=== PATIENT | male | born 1950 | race Caucasian/White ===

== ENCOUNTER 2018-12-25 04:54 | Inpatient (IN) ==
--- NOTE | 2018-11-29 11:38 | PAT Medication Instructions ---
Medication Instructions Date of Service November 29, 2018 Home Medications omega 3-ktd-grc-fish oil [Fish Oil] 1 cap PO QAM STOP taking 2 weeks before surgery (or as soon as possible if surgery is within 2 weeks) omega 8-tns-zxt-fish oil [Fish Oil] 1 cap PO QAM Other Notes If you have any questions please call us at [phone] or [phone] or [phone] or [phone]
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
--- NOTE | 2018-12-03 10:54 | XRay Report ---
XR chest Pre-admission PA/Lat HISTORY: 67 years-old Male pat preoperative exam. No acute chest complaints COMPARISON: None available TECHNIQUE: PA and lateral views of the chest FINDINGS: Asymmetric right hilar prominence. The left hilum and cardiac silhouette appears normal. No pneumotho rax, pleural effusion, focal airspace consolidation or overt pulmonary edema. The lungs are mildly hy perinflated. Cholecystectomy. The bones appear grossly intact. IMPRESSION: Asymmetric right hilar prominence. This finding may be secondary to pulmonary vasculature or adenopathy. Correlate with prior imaging. The above report was generated using voice recognition software. It may contain grammatical, syntax o r spelling errors. Electronically signed by: Sriram Vásquez M.D. 12/03/2018 10:53 AM
[2018-12-03 11:57] LABS: Basophils # (auto) 0.08 K/uL (0-0.2); Basophils % (auto) 1.6 %; Eosinophils # (auto) 0.14 K/uL (0-0.5); Eosinophils % (auto) 2.8 %; Hematocrit (blood only) 43.8 % (42-52); Hemoglobin 14.6 g/dL (14.0-18.0); Immature Granulocytes # (auto) 0.01 K/uL (0.00-0.02); Immature Granulocytes % (auto) 0.2 %; Lymphocytes # (auto) 1.82 K/uL (1.2-3.4); Lymphocytes % (auto) 35.9 %; Mean Corpuscular Hemoglobin 31.1 pg (25-34); Mean Corpuscular Hgb Conc 33.3 g/dL (32-36); Mean Corpuscular Volume 93.4 fL (80-100); Mean Platelet Volume 10.4 fL (7.4-10.4); Monocytes # (auto) 0.36 K/uL (0.11-0.59); Monocytes % (auto) 7.1 %; Neutrophils # (auto) 2.66 K/uL (1.4-6.5); Neutrophils % (auto) 52.4 %; Platelet Count 192 K/uL (130-400); RDW Coefficient of Variation 12.4 % (11.5-14.5); RDW Standard Deviation 42.1 fL (36.4-46.3); Red Blood Count 4.69 M/uL (4.7-6.1); White Blood Count 5.07 K/uL (4.8-10.8)
[2018-12-03 12:05] LABS: Partial Thromboplastin Time 27.8 Seconds (21.0-31.0); Prothrombin Time 10.4 Seconds (9.0-12.0)
[2018-12-03 12:36] LABS: BUN Creatinine Ratio 12.6 (10-20); Calcium 8.7 mg/dl (8.5-10.1); Creatinine Clr Calc Pharmacy 67.3 ml/min; Est GFR (African American) 80.1; Est GFR (Non-African American) 69.1
--- NOTE | 2018-12-22 10:41 | History and Physical Report ---
DATE OF ADMISSION: 12/25/2018 CHIEF COMPLAINT: Right hip pain. HISTORY OF PRESENT ILLNESS: The patient is a 68-year-old gentleman who presents for surgical treatment of right hip. He has got a 5-year history of gradually increasing pain and discomfort in his right hip, groin, and thigh area. Some buttock pain as well. Radiates down to his knee. Denies any numbness. He has seen my partner Dr. Pina who has been managing, but become less successful over time. He has a limited walking tolerance. He has difficulty putting his shoes and socks on. Minimal response to anti-inflammatories. He would like to proceed with surgical treatment. PAST MEDICAL HISTORY: 1. Low back pain. 2. Skin cancer. PAST SURGICAL HISTORY: Include: 1. [place] [address] Castellanos. 2. Skin surgery. ALLERGIES: No known drug allergies. CURRENT MEDICATIONS: None. SOCIAL HISTORY: Significant for a 67-year-old gentleman. He does not smoke. One drink per week. FAMILY HISTORY: Noncontributory. REVIEW OF HISTORY: Negative for diabetes, neurologic problems, vascular problems or bleeding disorders. Denies any chest pain or shortness of breath. No history of DVT or PE. No known bleeding problems. PHYSICAL EXAMINATION: GENERAL: Shows a pleasant, middle-aged male. He looks to be in pretty good health. HEENT: Benign. NECK: Supple, no lymphadenopathy. LUNGS: Clear to auscultation. HEART: Regular rate and rhythm. ABDOMEN: Soft, nontender, nondistended. EXTREMITIES: Grossly neurovascularly intact except as follows. Examination of the right hip reveals patient walks with a slight bit of a limp. Leg lengths appear pretty equal clinically. Maybe just a little bit short on the right side compared to left. He has a very stiff hip. Internal rotation to neutral at best. This recreates his leg and thigh pain. He has got no knee effusion. Negative straight leg raise. He is neurologically intact. X-RAYS: X-rays of the right hip were reviewed. Shows advanced right hip DJD. He has got complete loss of the superior joint space. He has subchondral sclerosis. He has got some osteophytes around the femoral head and acetabulum. ASSESSMENT: A 68-year-old gentleman with advanced right hip degenerative joint disease. He has failed conservative treatment. The hip arthritis may be the source of a lot of his knee pain as well. PLAN: We talked about treatment options. He would like to have his right hip replaced. We are going to take him to the operating room and do a right total hip replacement. The risks and benefits of this procedure were explained to the patient including but not limited to DVT, PE, , infection, neurological injury, vascular injury, bleeding problem, pain, limited range of motion, stiffness, failure to relieve symptoms, incomplete relief of symptoms, need for further surgery in future, fracture, leg length inequality, nerve palsy, dislocation, need for revision surgery, etc. The patient understands and desires to proceed. Informed consent was obtained. As far as discharge plans, he is planning to be discharged to home using [facility].
[2018-12-25] MEDS ORDERED: ACETAMINOPHEN 500 MG TAB PO SCH (06:00)
[2018-12-25] MEDS ORDERED: TRANEXAMIC ACID 1,000 MG **IV Pre-op IV SCH (06:00)
[2018-12-25] MEDS ORDERED: LR 500ML BOLUS, THEN 15ML/HR IV SCH (06:00)
[2018-12-25] MEDS ORDERED: LR 60ML/HR IV SCH (06:00)
[2018-12-25] MEDS ORDERED: GABAPENTIN 300 MG CAP PO SCH (06:00)
[2018-12-25] MEDS ORDERED: SCOPOLAMINE 1.5 MG TDSY TD SCH (06:00)
[2018-12-25] MEDS ORDERED: CEFAZOLIN 2000MG 2,000 MG/15 ML SYR IV SCH (06:00)
[2018-12-25] MEDS ORDERED: METOCLOPRAMIDE HCL 10 MG TABLET PO SCH (06:00)
[2018-12-25] MEDS ORDERED: FAMOTIDINE 20 MG TAB PO SCH (06:00)
[2018-12-25] MEDS ORDERED: BUPIVACAINE 0.5 % 5 MG/1 ML PF 10ML VIAL ONE (06:22)
[2018-12-25] MEDS ORDERED: BACITRACIN INJ 50,000 UNIT VIAL ONE (06:35)
[2018-12-25] MEDS ORDERED: BUPIVACAINE 0.5 % 5 MG/1 ML MPF 30ML VIAL ONE (06:35)
[2018-12-25] MEDS ORDERED: EPINEPHrine INJ 1 MG/ML AMP ONE (06:36)
[2018-12-25] MEDS ORDERED: MoRPHine SULFATE PF 1 MG/ML 10 ML AMP/VIAL ONE (06:40)
[2018-12-25] MEDS ORDERED: fentaNYL citrate 100 MCG/2 ML VIAL ONE (06:40)
[2018-12-25] MEDS ORDERED: MIDAZOLAM HCL 1 MG/ML 2ML VIAL ONE ×2 (06:40→06:59)
--- NOTE | 2018-12-25 06:53 | History & Physical Bridge Note ---
Date of Service December 25, 2018 History & Physical Bridge Note I have examined the patient, reviewed the History & Physical and in the interval since the performance of the History & Physical I have noted the following changes of clinical significance: no changes noted
--- NOTE | 2018-12-25 08:24 | Post Operative Brief Note ---
PG Immediate Post Op with CF Date of Surgery December 25, 2018 Pre & Post Diagnosis Operation Date: 12/25/18 07:00 Pre-Op Diagnosis: Right Hip Advanced Degenerative Joint Disease Post-Op Diagnosis: Right Hip Advanced Degenerative Joint Disease I identified the patient and participated in the time-out.: Yes Procedure Operation Date: 12/25/18 07:00 Actual Procedures p Right Total Hip Arthroplasty--Uncemented(Right) - Saul Cedeno MD Surgeon Saul Cedeno MD Bottom Ironer Sha, PAC Estimated Blood Loss 200 Findings Consistent with Post-Op Diagnosis Fluids 1300 cc Specimens Specimen Description: A. Right Femoral Head Drains Trammell Catheter (A 16 Arabic trammell catheter was inserted by EVANGELINA Andrade, without difficulty, clear yellow urine obtained, output to be monitored by Anesthesia.) Anesthesia Type Spinal MAC Complications none Disposition Disposition: Recovery Room
--- NOTE | 2018-12-25 08:36 | Operative Report ---
Post Operative Report Pre & Post Diagnosis Operation Date: 12/25/18 07:00 Pre-Op Diagnosis: Right Hip Advanced Degenerative Joint Disease Post-Op Diagnosis: Right Hip Advanced Degenerative Joint Disease I identified the patient and participated in the time-out.: Yes Procedure Operation Date: 12/25/18 07:00 Actual Procedures p Right Total Hip Arthroplasty--Uncemented(Right) - Saul Cedeno MD Surgeon Saul Cedeno MD Tank Builder Supervisor Sha, PAC Estimated Blood Loss 200 Findings Consistent with Post-Op Diagnosis Operative findings revealed advanced right hip DJD. He had a large anterior osteophyte. He had grade 4 [id number] disease of the femoral head and acetabulum. Very stiff hip with limited internal rotation. Fluids 1300 cc Specimens Right femoral head sent for pathology. Anesthesia Type Spinal MAC Complications none Disposition Disposition: Recovery Room Indications Patient is a 68-year-old male is had a several history of increased right hip pain discomfort. He failed extensive conservative care. He had a very stiff hip with limited motion. X-rays reveal advanced right hip DJD. He failed conservative care and like to proceed with total hip arthroplasty. Description of Procedure Operative implants consisted of: 1. Biomet size 58 mm G7 acetabular shell. 2. Biomet apex hole eliminator. 3. Biomet 58 mm x 36 mm highly cross-link polyethylene liner with a wright placed inferior and posterior. 4. 6.5 cancellus acetabular screws 1 a 35 mm length and 125 mm in length. 5. PePuy Coarail size 13 KLA femoral stem. 6. +8.5/36 mm ceramic articular ball. Patient is taken to the operating room identified and placed on the operating table supine position. Contact there is probably padded. IV antibiotic for by by the anesthesia team. Heath catheter was placed in sterile fashion. Patient was then placed in the left lateral decubitus position. Axillary roll was placed per the Stulberg hip positioner was used for positioning. The right hip and leg were then prepped and draped in usual sterile fashion. A posterior lateral approach of the right hip was then performed to a curvilinear incision centered over the greater trochanter but Sharp passes cut through subtenons tissue down to level the IT band gluteal fascia we document gluteal fascia incised longitudinally in line with skin incision. The underlying greater trochanteric bursa was then excised. The piriformis and external rotators were tagged and taken off the posterior aspect of the hip joint capsule. Great care was taken throughout the procedure to protect the sciatic nerve at all times. Posterior capsulotomy was then performed leaving a large flap for later repair. Hip was internally rotated and dislocated. Femoral neck osteotomy cut was weight made with Final Cut 8 mm above the lesser trochanter. Femoral head was removed and sent for pathology. The femur was retracted anteriorly. Attention drawn the acetabulum. The acetabular labrum was excised. The pulmonary fat was excised. Sequential reaming the acetabulum was then performed given the size 49 progressing up to 57. A 58 mm Biomet G7 acetabular shell was then placed in about 40 degrees lateral opening and 20 degrees of anteversion but was fixed with two 6.5 cancellus acetabular screws. Somewhat large anterior osteophytes were removed. A trial liner was placed. Attention drawn the femur. The proximal femur was then with a TeliApp cutter followed by canal finder. Then broach being the size 8 and progressing up to 13. Got excellent fitted to 13. Cancellus bone was very strong so we elected to stop there. Calcar reamer was used to smooth off the calcar. I trialed the hip. I considered several options but I elected to place a highly cross-link polyethylene liner with a wall placed inferior and posterior to +5 articular ball. Seem to re-create the most stability to the hip and the appropriate soft tissue tension and leg lengths. I like to place these implants. New profile trial implants were removed. An apex hole eliminator was placed but highly cross-link polyethylene liner with a wright placed inferior and posterior were then placed. A Lutz Corail size 13 KLA femoral stem was then impacted in position. A +5/36 mm ceramic articular ball was placed. Hip was located once again found to be stable. Attention turned to closing. Breath wounds irrigated cups amounts of pulsatile lavage solution. I did inject locally with 60 cc of 5% Marcaine with epinephrine. The posterior capsule and external rotators were then repaired through drill holes in the posterior trochanter with #2 Tycron suture. The IT band gluteal fascia then closed in 1 PDS suture running fashion this obtains tissues then closed 2 layers with a deep layer #1 Vicryl suture this obtains tissues with 2-0 Dexon suture in a buried interrupted fashion. The skin was then closed with skin rashmi. Leg was then cleaned dried and sterile dressing composed of Xeroform, 4 x 4's, ABD pad, foam tape was applied. Patient then transferred to the recovery room in stable condition. Patient tolerated the procedure well no comp case but only sponge counts are correct at the end the operation. I attest to the content of the Intraoperative Record and any orders documented therein. Any exceptions are noted below.
[2018-12-25] MEDS ORDERED: ePHEDrine sulfate 50 MG/ML AMP IV PRN ×2 (08:40→10:36)
[2018-12-25] MEDS ORDERED: ATROPINE SULFATE 0.1 MG/ML 10ML SYR IV PRN (08:40)
--- NOTE | 2018-12-25 09:06 | XRay Report ---
XR hip 1V RT w pelvis CLINICAL HISTORY: IN PACU - A/P PELVIS and LATERAL HIP pain COMPARISON: None. DISCUSSION: Anatomic alignment posttotal right hip arthroplasty. Could contact between prosthetic and underlying bone. Expected postoperative soft tissue change IMPRESSION: Anatomic alignment posttotal right hip arthroplasty. The above report was generated using voice recognition software. It may contain grammatical, syntax or spelling errors. Electronically signed by: Ferdinand Stone M.D. 12/25/2018 9:05 AM
--- NOTE | 2018-12-25 09:20 | Anesthesiology Progress Note ---
Date of Service December 25, 2018 Anesthesia Post Procedure Vital Signs Vital Signs: Temp Pulse Pulse Resp BP Pulse Ox 12/25/18 09:15 36.7 C 51 L 16 121/56 L 100 12/25/18 09:05 63 17 119/57 L 99 12/25/18 08:55 61 23 142/64 H 100 12/25/18 08:45 65 16 153/63 H 87 L 12/25/18 08:35 71 16 153/63 H 100 12/25/18 08:25 36.4 C L 82 16 141/47 H 99 12/25/18 05:23 36.5 C 75 20 148/73 H 99 Pain Intensity Right Hip: Pain Intensity: 0 Transfer of Care Handoff Completed per policy Notes Mental Status: alert / awake / arousable Patient Amnestic to Procedure: Yes Nausea / Vomiting: adequately controlled Pain: adequately controlled Airway Patency, RR, SpO2: stable & adequate BP & HR: stable & adequate Hydration State: stable & adequate Anesthetic Complications: no major complications apparent
[2018-12-25] MEDS ORDERED: MAGNESIUM HYDROXIDE SUSP 30 ML UDC PO PRN (09:56)
[2018-12-25] MEDS ORDERED: BISACODYL 10 MG SUPP PR PRN (09:56)
[2018-12-25] MEDS ORDERED: ALUMINUM/MAGNESIUM SUSP 30 ML UDC PO PRN (09:56)
[2018-12-25] MEDS ORDERED: NALOXONE HCL 0.4 MG/1 ML VIAL/CARP IV PRN ×2 (09:56→10:36)
[2018-12-25] MEDS ORDERED: TAMSULOSIN HCL 0.4 MG CAP PO PRN (10:00)
[2018-12-25] MEDS ORDERED: NALOXONE HCL 1 MG in SODIUM CHLORIDE 0.9% 1000ML 1,000 ML IV PRN (10:36)
[2018-12-25] MEDS ORDERED: DiphenhydrAMINE HCL 50 MG/ML VIAL IV PRN (10:36)
[2018-12-25] MEDS ORDERED: NALOXONE HCL 0.08 MG in SYRINGE 1.8 ML IV PRN (10:36)
[2018-12-25] MEDS ORDERED: MoRPHine SULFATE PF 1 MG/ML 10 ML AMP/VIAL INT SPINAL ONE (10:36)
[2018-12-25] MEDS ORDERED: ONDANSETRON INJ 2 MG/ML 2 ML VIAL IV PRN (10:36)
[2018-12-25] MEDS ORDERED: NALBUPHINE HCL INJ 10 MG/ML AMP IV PRN (10:36)
[2018-12-25] MEDS ORDERED: LACTATED RINGER'S 500 ML IV PRN (10:36)
[2018-12-25] MEDS ORDERED: NO NARCOTICS OR SEDATIVES SCH (10:45)
[2018-12-25] MEDS ORDERED: SODIUM CHLORIDE 0.9% 1000ML 1,000 ML IV SCH (10:45)
[2018-12-25] MEDS ORDERED: DC INTRASPINAL MORPHINE SCH (10:45)
[2018-12-25] MEDS: SODIUM CHLORIDE 0.9% 1000ML 1,000 ML IV SCH ×2 (11:20→20:21)
[2018-12-25] MEDS: DOCUSATE SODIUM 100 MG CAP PO SCH ×2 (11:20→20:18)
[2018-12-25] MEDS: MULTIVITAMIN TAB PO SCH (11:21)
[2018-12-25] MEDS: ASPIRIN 81 MG ECTAB PO SCH ×2 (11:21→20:19)
[2018-12-25] MEDS: OMEGA-3 (PURIFIED FISH OIL) 1 GM CAP PO SCH (11:21)
[2018-12-25] MEDS: KETOROLAC TROMETHAMINE 15 MG/ML VIAL IV SCH ×3 (11:25→23:32)
[2018-12-25] MEDS: ACETAMINOPHEN 500 MG TAB PO SCH ×2 (13:31→22:18)
[2018-12-25] MEDS: CEFAZOLIN 2000MG 2,000 MG/15 ML SYR IV SCH ×2 (14:16→22:20)
[2018-12-25] MEDS ORDERED: TRANEXAMIC ACID 1,000 MG in 0.9 % SODIUM CHLORIDE 100 ML IV SCH (14:30)
[2018-12-25] MEDS: CHECK SCOPOLAMINE PATCH PLACEMENT SCH ×2 (16:07→23:35)
[2018-12-25] MEDS: FERROUS GLUCONATE 324 MG TAB PO SCH (17:33)
[2018-12-25] MEDS: ASCORBIC ACID 500 MG TAB PO SCH (17:33)
[2018-12-25] MEDS ORDERED: SENNA 8.6 MG TAB PO SCH (21:00)
[2018-12-26] MEDS ORDERED: METOCLOPRAMIDE HCL INJ 5 MG/ML 2 ML VIAL IV PRN (04:37)
[2018-12-26] MEDS ORDERED: HYDROmorphone INJ 0.5 MG/0.5 ML SYR IV PRN (04:37)
[2018-12-26] MEDS ORDERED: TRAMADOL HCL 50 MG TABLET PO PRN (04:37)
[2018-12-26] MEDS ORDERED: ONDANSETRON INJ 2 MG/ML 2 ML VIAL IV PRN (04:37)
[2018-12-26] MEDS: ACETAMINOPHEN 500 MG TAB PO SCH ×2 (05:19→14:07)
[2018-12-26] MEDS: KETOROLAC TROMETHAMINE 15 MG/ML VIAL IV SCH ×3 (05:19→17:04)
[2018-12-26] MEDS: SODIUM CHLORIDE 0.9% 1000ML 1,000 ML IV SCH (06:00)
[2018-12-26 06:06] LABS: Basophils # (auto) 0.04 K/uL (0-0.2); Basophils % (auto) 0.4 %; Eosinophils # (auto) 0.08 K/uL (0-0.5); Eosinophils % (auto) 0.9 %; Hematocrit (blood only) 33.8 % (42-52); Hemoglobin 11.6 g/dL (14.0-18.0); Immature Granulocytes # (auto) 0.02 K/uL (0.00-0.02); Immature Granulocytes % (auto) 0.2 %; Lymphocytes # (auto) 1.41 K/uL (1.2-3.4); Lymphocytes % (auto) 15.7 %; Mean Corpuscular Hemoglobin 31.6 pg (25-34); Mean Corpuscular Hgb Conc 34.3 g/dL (32-36); Mean Corpuscular Volume 92.1 fL (80-100); Mean Platelet Volume 10.1 fL (7.4-10.4); Monocytes # (auto) 1.05 K/uL (0.11-0.59); Monocytes % (auto) 11.7 %; Neutrophils # (auto) 6.36 K/uL (1.4-6.5); Neutrophils % (auto) 71.1 %; Platelet Count 149 K/uL (130-400); RDW Coefficient of Variation 12.2 % (11.5-14.5); RDW Standard Deviation 41.6 fL (36.4-46.3); Red Blood Count 3.67 M/uL (4.7-6.1); White Blood Count 8.96 K/uL (4.8-10.8)
[2018-12-26 06:44] LABS: BUN Creatinine Ratio 18.6 (10-20); Calcium 7.9 mg/dl (8.5-10.1); Creatinine Clr Calc Pharmacy 58.9 ml/min; Est GFR (African American) 68.8; Est GFR (Non-African American) 59.4; Potassium 3.7 mmol/L (3.5-5.1)
[2018-12-26] MEDS: ASCORBIC ACID 500 MG TAB PO SCH ×2 (08:21→17:04)
[2018-12-26] MEDS: OMEGA-3 (PURIFIED FISH OIL) 1 GM CAP PO SCH (08:21)
[2018-12-26] MEDS: FERROUS GLUCONATE 324 MG TAB PO SCH ×2 (08:21→17:04)
[2018-12-26] MEDS: MULTIVITAMIN TAB PO SCH (08:21)
[2018-12-26] MEDS: ASPIRIN 81 MG ECTAB PO SCH (08:21)
[2018-12-26] MEDS: DOCUSATE SODIUM 100 MG CAP PO SCH (08:21)
[2018-12-26] MEDS ORDERED: TRAMADOL HCL 50 MG HOME PACK PO ONE (16:51)
--- NOTE | 2018-12-26 17:47 | Progress Note ---
DATE: 12/26/2018 SUBJECTIVE: A 68-year-old gentleman postop day 1 from right hip replacement. He is doing pretty well. Rates his pain as 1-2 out of 10. No chest pain or shortness of breath. Therapy went well. Not having any nausea. He has done okay with the pain pills. OBJECTIVE: VITAL SIGNS: Temperature 36.7. Vital signs stable. GENERAL: Shows a pleasant, middle-aged male. He is sitting up in his bedside chair, eating his dinner and talking to his . He looks comfortable. EXTREMITIES: Examination of the right hip reveals the dressing to be clean, dry and intact. Thigh is soft and supple. His hip is located. He can dorsiflex and plantarflex his foot appropriately. Leg lengths were equal. LABORATORY DATA: Hemoglobin is 11.6. Hematocrit 33.8. Electrolytes are stable. ASSESSMENT: A 68-year-old gentleman postop day 1 from right hip replacement, doing pretty well. Pain is controlled. Therapies went well. PLAN: 1. DVT prophylaxis including thigh-high TEDs, SCDs, and aspirin twice a day. 2. PT/OT. Weight bear as tolerated. Right total hip protocol. 3. Pain control, doing well with current pain regimen. 4. Disposition: Plan to discharge to home with some home health. He is hoping to go home this evening. We will give him a tramadol home pack as his scripts cannot be picked up until tomorrow.
--- NOTE | 2019-01-02 22:47 | Discharge Summary ---
ADMITTING PHYSICIAN AND SURGEON: Dr. Saul Cedeno. ADMITTING DIAGNOSIS: Right hip degenerative joint disease. SURGERY PERFORMED: Right total hip arthroplasty. SECONDARY DIAGNOSES: Low back pain and skin cancer. CONSULTS: None obtained. HISTORY AND PHYSICAL EXAMINATION: Well documented in the patient's chart. HOSPITAL COURSE: The patient was admitted on 12/25/2018, underwent total hip arthroplasty, tolerated the procedure well. There were no complications. He was transferred to the PACU postoperatively and later to the orthopedic floor for further care. He was given Ancef for antibiotic prophylaxis, FLASH stockings, SCDs and aspirin for DVT prophylaxis. Hemoglobin, hematocrit and vital signs were monitored during his hospital stay and remained stable, did not require any blood transfusions. There were no complications. By postoperative day 1, he was tolerating a regular diet, pain was controlled with oral pain medicine. He was participating in physical therapy. By postop day 1, he was discharged home, set up with home health services, given printed discharge instructions as well as new prescriptions for extra strength Tylenol, aspirin and tramadol. Continue home medicines. Continue physical therapy, weightbearing as tolerated, FALSH stockings, total hip precautions. Follow up approximately 2 weeks or sooner if there are any problems or concerns.
== END 2018-12-26 17:43 | disposition home health service (06) | DRG 470 ==
LOC: ASU 04:54 → 3E 08:34
DX: M16.11 Unilateral primary osteoarthritis, right hip